=== PATIENT | female | born 1980 | race Caucasian/White ===

== ENCOUNTER → 2017-09-21 13:16 | Outpatient (CLI) | payer OTHER, MEDICAID, SELFPAY ==
[2017-09-21 13:52] LABS: Appearance Urine UA CLEAR; Bilirubin Urine UA NEGATIVE (NEGATIVE); Color Urine UA YELLOW; Glucose Urine UA TRACE g/dL (Normal); Ketones Urine UA TRACE (NEGATIVE); Leukocyte Esterase Urine UA TRACE (NEGATIVE); Nitrite Urine UA POSITIVE (NEGATIVE); Occult Blood Urine UA 1+ (Negative); Protein Urine UA 1+ (Negative); pH Urine UA 6.5 (4.5-8.0)
[2017-09-21 13:59] LABS: WBC Urine 5-10/HPF (0-5/HPF)
[2017-09-21 14:00] LABS: Amorphous Sediment Urine 2+; Culture Indicated Urine Specimen Cultured
== END ==
PROVIDERS: PCP Family Medicine; Visit Provider Family Medicine
DX: R30.0 Dysuria (principal)
CPT/HCPCS: 81001; 87086

== ENCOUNTER 2018-08-20 16:56 | Emergency (ER) | payer OTHER, MEDICAID, SELFPAY ==
[2018-08-20 17:00] VITALS: BP 129/87; PULSE 115; RESP 22; TEMP 37.2; O2SAT 99
--- NOTE | 2018-08-20 18:32 | ED.DENTAL ---
HPI - Dental/Oral <Jackie Johnson PA-C - Last Filed: 08/20/18 19:14> General Chief complaint: Dental/Oral Stated complaint: DENTAL PAIN Time Seen by Provider: 08/20/18 18:32 Source: patient Mode of arrival: ambulatory Limitations: no limitations History of Present Illness HPI Narrative: This 37-year-old female comes in due to persistent dental pain. She was actually seen at [facility] this morning for right-sided tooth pain and a dental block was done. She was told that the tooth needs to be pulled. She was prescribed amoxicillin, ibuprofen and Tylenol. She states that the dental block for often she has been in terrible pain. She got some 10% benzocaine lozenges and has been applying heat since she has been here and that has actually helped considerably. She denies possibility of . Denies any other new concerns or complaints today such as earache or URI symptoms. She thinks the pain started due to biting a hard pizza crust last night Related Data Allergies Allergy/AdvReac Type Severity Reaction Status Date / Time No Known Allergies Allergy Uncoded 08/15/17 12:50 Review of Systems <Jackie Johnson PA-C - Last Filed: 08/20/18 19:14> Review of Systems ROS Unobtainable: All systems reviewed & are unremarkable except as noted in HPI and below PFSH <Jackie Johnson PA-C - Last Filed: 08/20/18 19:14> Medical History No chronic diseases present (Chronic) No pertinent family history (Chronic) Surgical History (Updated 08/20/18 @ 19:12 by Jackie Johnson PA-C) No pertinent past surgical history (Chronic) Social History Smoking Status: Current every day smoker Social History Smoking Status: Current every day smoker Exam <Jackie Johnson PA-C - Last Filed: 08/20/18 19:14> Narrative Exam Narrative: GENERAL APPEARANCE: Patient sitting comfortably, in no distress. HEENT: PERRLA, EOMI, normal oropharynx, numerous broken teeth with generally poor dentition. There is a broken inferior premolar where she indicates tenderness on the top of the tooth and labial side. Surrounding gum tissue is not erythematous, no fluctuance. Normal TMs NECK: Supple, no masses LUNGS: Clear to auscultation bilaterally. HEART: Rate and rhythm regular without murmur, normal S1 and S2, no S3 or S4. Initial Vital Signs Initial Vital Signs: Vital Signs Temperature 98.9 F 08/20/18 17:00 Pulse Rate 115 H 08/20/18 17:00 Respiratory Rate 22 08/20/18 17:00 Blood Pressure 129/87 08/20/18 17:00 Pulse Oximetry 99 08/20/18 17:00 <Mika Tavera MD - Last Filed: 08/20/18 23:25> Initial Vital Signs Initial Vital Signs: Vital Signs Temperature 98.9 F 08/20/18 17:00 Pulse Rate 115 H 08/20/18 17:00 Respiratory Rate 22 08/20/18 17:00 Blood Pressure 129/87 08/20/18 17:00 Pulse Oximetry 99 08/20/18 17:00 Course <Jackie Johnson PA-C - Last Filed: 08/20/18 19:14> Vital Signs - 8 hr 08/20/18 17:00 Temperature 98.9 F Pulse Rate 115 H Respiratory Rate 22 Blood Pressure 129/87 Pulse Oximetry 99 <Mika Tavera MD - Last Filed: 08/20/18 23:25> Vital Signs - 8 hr 08/20/18 17:00 Temperature 98.9 F Pulse Rate 115 H Respiratory Rate 22 Blood Pressure 129/87 Pulse Oximetry 99 Discharge Plan Departure Patient Disposition: Home Clinical Impression: Toothache Fracture of tooth Qualifiers: Encounter type: initial encounter Fracture type: closed Qualified Code(s): S02.5XXA - Fracture of tooth (traumatic), initial encounter for closed fracture Discharge Date/Time: 08/20/18 18:56 Interventions: ED Discharge Assessment Last Done: 08/20/18 18:56 Instructions: DI for Dental Pain Activity Restrictions/Additional Instructions: Please continue your amoxicillin along with the ibuprofen 600 mg every 6 hours as prescribed. You can take the Tylenol 500 mg every 6 hours while you are awake (do not take more than 6 daily). Continue the topical benzocaine and heat since that seems to work best for you. Please call [facility] dental in the morning and let them know you were seen in the emergency room the with increased pain so that hopefully they can get this repaired for you on Referrals: Adam Brady, Vladislav Mishra [Other] [facility] [Provider Group] <Mika Tavera MD - Last Filed: 08/20/18 23:25> Cosign ED Attending Letty Attestation: I was present in the ER at the time this patient's care. I was available for consultation if needed. I agree with the assessment and treatment plan.
== END 2018-08-20 18:56 | disposition home or self-care (01) ==
PROVIDERS: Emergency Provider Internal Medicine
DX: S02.5XXA Fracture of tooth (traumatic), initial encounter for closed fracture (principal)
CPT/HCPCS: 99282